=== PATIENT | female | born 1965 | race Caucasian/White ===

== ENCOUNTER → 2017-06-05 | Outpatient (CLI) | payer BC ==
[~2017-06-05] MED LIST: ATIVAN0.5 MG PO; BENICAR HCT 12.1 TA1 PO; BUPROPION SR150 MG PO; BUSPAR DIVIDOSE15 MG PO; CALCIUM 600MG+D1 TAB PO; CITALOPRAM40 MG PO; DIGESTIVE PROB1 EACH PO; DILTIAZEM ER240 MG PO; DIOVAN/HCT 12.51 TA1 PO; ESTRACE 1MG1 MG/TAB PO; FLOVENT DI50 MCG/Act IH; IMITREX100 MG PO; MULTIVITAMIN; OMEPRAZOLE DR20 MG PO; PROAIR HFA0.09 MG/AC IH; PROBIOTIC; SUMATRIPTAN SUC50 MG PO; VALIUM 5MG T5 MG/TAB PO; ZOCOR 20MG20 MG PO; ZOCOR 40MG40 MG PO; [UNRECOGNIZED DRUG - OTHER]; [UNRECOGNIZED DRUG - OTHER]; [UNRECOGNIZED DRUG - OTHER] DE
== END ==
LOC: MC.RAD 14:29
DX: Z12.31 Encounter for screening mammogram for malignant neoplasm of breast (principal)

== ENCOUNTER → 2018-06-24 | Outpatient (CLI) | payer BC | LOC: MC.RAD 14:57 | DX: Z12.31 Encounter for screening mammogram for malignant neoplasm of breast (principal) ==

== ENCOUNTER → 2019-07-12 | Outpatient (CLI) | payer BC | LOC: MC.RAD 14:30 | DX: Z12.31 Encounter for screening mammogram for malignant neoplasm of breast (principal) ==

== ENCOUNTER → 2020-07-13 | Outpatient (CLI) | payer BC | LOC: MC.RAD 14:30 | DX: Z12.31 Encounter for screening mammogram for malignant neoplasm of breast (principal) ==

== ENCOUNTER → 2021-08-14 | Outpatient (CLI) | payer BC | LOC: MC.RAD 13:44 | DX: Z12.31 Encounter for screening mammogram for malignant neoplasm of breast (principal) ==